=== PATIENT | male | born 1955 | race Caucasian/White ===

== ENCOUNTER 2016-09-03 11:18 | Emergency (ER) | payer MEDICARE ==
[~2016-09-03] VITALS: Ht 170.2 cm; Wt 77.3 kg
[~2016-09-03 11:18] MED LIST: ISOS30TA3 PO; METO25 PO; PROT40TA PO
[2016-09-03 11:21] VITALS: BP 101/59; PULSE 76; RESP 24; TEMP 97.8; O2SAT 98
[2016-09-03 11:24] VITALS: BP 101/59; PULSE 74; RESP 24; O2SAT 97
[2016-09-03 11:29] VITALS: O2SAT 99
[2016-09-03] MEDS ORDERED: SODIUM CHLORIDE 0.9% FLUSH 10 ML FLUSH IVF PRN (11:30)
--- NOTE | 2016-09-03 11:30 | PD ---
HPI Chief Complaint: Respiratory Symptoms Time Seen by Provider: 11:27 Travel History International Travel<30 days: No Contact w/Intl Traveler<30days: No Traveled to known affect area: No History of Present Illness HPI 61-year-old male with previous history of right sided pneumothorax, presents to the ER today for lightheadedness since this morning followed by dyspnea and shortness of breath. He denies any coughing, fevers, chest pains, or any other symptoms. He states that symptoms worsen with exertion. Modifying Factors: None Associated Signs & Symptoms: Shortness of breath, dyspnea Risk Factors: Previous pneumothorax history PFSH Past Medical History Cardiac Catheterization: Yes (3-4 YEARS AGO) Cardiovascular Problems: Yes Chest Pain: Yes Musculoskeletal: Yes (R HAND FINGER AMP) Respiratory: Yes Myocardial Infarction: Yes (X3) Social History Alcohol Use: No Tobacco Use: Yes Substance Use: No Allergies-Medications (Allergen,Severity, Reaction): Coded Allergies: Penicillin (Unverified Allergy, Unknown, 09/03/16) Sulfa (Unverified Allergy, Unknown, 09/03/16) Uncoded Allergies: UNK (Allergy, Severe, 01/29/14) Reported Meds & Prescriptions Reported Meds & Active Scripts Active Reported Zantac (Ranitidine HCl) 150 Mg Tab 150 Mg PO DAILY Nitroglycerin SL (Nitroglycerin) 0.4 Mg Subl 0.4 Mg SL DIRECTED PRN ONE TABLET UNDER THE TONGUE NEEDED FOR CHEST PAIN, MAY REPEAT EVERY FIVE MINUTES FOR A TOTAL OF 3 DOSES OR CALL 911 IF NO RELIEF [chantix patch] Aspirin 81 Mg Chew 81 Mg CHEW DAILY Review of Systems Except as stated in HPI: all other systems reviewed are Neg Physical Exam Narrative GENERAL: Well-developed elderly white male patient in mild respiratory distress. Awake and oriented 3. Appears fairly anxious. SKIN: Focused skin assessment warm/dry. HEAD: Atraumatic. Normocephalic. EYES: Pupils equal and round. No scleral icterus. No injection or drainage. ENT: No nasal bleeding or discharge. Mucous membranes pink and moist. NECK: Trachea midline. No JVD. CARDIOVASCULAR: Regular rate and rhythm. No murmur appreciated. Pulses are present and equal bilaterally. RESPIRATORY: No accessory muscle use. Clear to auscultation. Breath sounds equal bilaterally. GASTROINTESTINAL: Abdomen soft, non-tender, nondistended. Hepatic and splenic margins not palpable. MUSCULOSKELETAL: No obvious deformities. No clubbing. No cyanosis. No edema. NEUROLOGICAL: Awake and alert. No obvious cranial nerve deficits. Motor grossly within normal limits. Normal speech. PSYCHIATRIC: Appropriate mood and affect; insight and judgment normal. Data Data Last Documented VS Vital Signs Date Time Temp Pulse Resp B/P Pulse Ox O2 Delivery O2 Flow Rate FiO2 09/03/16 12:41 69 18 114/62 99 Nasal Cannula 3 09/03/16 11:21 97.8 Orders Complete Blood Count With Diff (09/03/16 11:27) Comprehensive Metabolic Panel (09/03/16 11:27) B-Type Natriuretic Peptide (09/03/16 11:27) D-Dimer (09/03/16 11:27) Act Partial Throm Time (Ptt) (09/03/16 11:27) Prothrombin Time / Inr (Pt) (09/03/16 11:27) Ckmb (Isoenzyme) Profile (09/03/16 11:27) Troponin I (09/03/16 11:27) Iv Access Insert/Monitor (09/03/16 11:27) Electrocardiogram (09/03/16 11:27) Ecg Monitoring (09/03/16 11:27) Oximetry (09/03/16 11:27) Oxygen Administration (09/03/16 11:27) Chest, Single Ap (09/03/16 11:27) Sodium Chloride 0.9% Flush (Ns Flush) (09/03/16 11:30) CKMB (09/03/16 11:31) CKMB% (09/03/16 11:31) Lorazepam Inj (Ativan Inj) (09/03/16 12:45) Labs Laboratory Tests Test 09/03/16 11:31 White Blood Count 6.5 TH/MM3 Red Blood Count 4.48 MIL/MM3 Hemoglobin 14.1 GM/DL Hematocrit 41.0 % Mean Corpuscular Volume 91.5 FL Mean Corpuscular Hemoglobin 31.4 PG Mean Corpuscular Hemoglobin 34.4 % Concent Red Cell Distribution Width 12.8 % Platelet Count 203 TH/MM3 Mean Platelet Volume 8.3 FL Neutrophils (%) (Auto) 65.5 % Lymphocytes (%) (Auto) 25.0 % Monocytes (%) (Auto) 7.5 % Eosinophils (%) (Auto) 1.4 % Basophils (%) (Auto) 0.6 % Neutrophils # (Auto) 4.2 TH/MM3 Lymphocytes # (Auto) 1.6 TH/MM3 Monocytes # (Auto) 0.5 TH/MM3 Eosinophils # (Auto) 0.1 TH/MM3 Basophils # (Auto) 0.0 TH/MM3 CBC Comment DIFF FINAL Differential Comment Prothrombin Time 10.8 SEC Prothromb Time International 1.0 RATIO Ratio Activated Partial 24.7 SEC Thromboplast Time D-Dimer Quantitative (PE/DVT) 0.31 MG/L FEU Sodium Level 139 MEQ/L Potassium Level 3.6 MEQ/L Chloride Level 106 MEQ/L Carbon Dioxide Level 21.3 MEQ/L Anion Gap 12 MEQ/L Blood Urea Nitrogen 15 MG/DL Creatinine 1.26 MG/DL Estimat Glomerular Filtration 58 ML/MIN Rate Random Glucose 106 MG/DL Calcium Level 8.7 MG/DL Total Bilirubin 0.5 MG/DL Aspartate Amino Transf 20 U/L (AST/SGOT) Alanine Aminotransferase 29 U/L (ALT/SGPT) Alkaline Phosphatase 58 U/L Total Creatine Kinase 224 U/L Creatine Kinase MB 2.0 NG/ML Troponin I LESS THAN 0.02 NG/ML B-Type Natriuretic Peptide 19 PG/ML Total Protein 7.1 GM/DL Albumin 3.7 GM/DL [facility] Medical Decision Making Medical Screen Exam Complete: Yes Emergency Medical Condition: Yes Medical Record Reviewed: Yes Interpretation(s) EKG shows NSR, no ST elevation or depression, and no arrhythmias. No significant T-wave inversions. Laboratory Tests Test 09/03/16 11:31 Red Blood Count 4.48 MIL/MM3 (4.50-5.90) Estimat Glomerular Filtration 58 ML/MIN (>89) Rate Troponin I LESS THAN 0.02 NG/ML (0.02-0.05) Last 24 hours Impressions Chest X-Ray 09/03/16 1127 Signed Impressions: Service Date/Time: Saturday, September 03, 2016 11:41 - CONCLUSION: No acute disease. Beau Sweeney MD Differential Diagnosis Lightheadedness, shortness of breath, dyspneapneumonia versus CHF exacerbation versus COPD/bronchitis versus anxiety attack versus pneumothorax Narrative Course Saturations are within normal limits. EKG did not show any signs of dysrhythmias. D-dimer is negative. Cardiac enzymes are unremarkable and BNP is unremarkable. Chest x-ray did not show any signs of acute pulmonary processes. And on further discussions with the patient, he states that he has been more stressed out than usual, states that his has medical issues, and the money has been tight, and he states he does not know what happened this morning, just was not feeling right. He was given Ativan in the ER and on reevaluation at 1:30 PM, he states he is feeling improved. His vital signs remained stable. He has no focal neurological deficits. He has talking normally, oriented, has no chest pains, and states that the feeling like he was short of breath is subsiding. I suspect he could be having an anxiety attack in this case. Patient has previous history of anxiety attacks although not recent. I have talked to him regarding findings and have offered to admit him as an observation but the patient states that he would feel more comfortable following up with his primary care physician. Patient states that he has had stress testing done about 3 to 4 years ago which were negative. At this point, my plan would be to release him with follow-up closely with primary care physician. Return for any worsening in shortness of breath or new symptoms as needed. The plan has discussed with him and he states understanding. Diagnosis Primary Impression: Shortness of breath Disposition: 01 DISCHARGE HOME Condition: Stable Mirza Santiago MD Sep 03, 2016 11:30
[2016-09-03] MEDS ORDERED: ASPI81CH CHEW (11:55)
[2016-09-03] MEDS ORDERED: ZANT150T2 PO (11:55)
[2016-09-03] MEDS ORDERED: NITR1SUB3 SL (11:55)
[2016-09-03] MEDS ORDERED: CHANTIX (11:55)
[2016-09-03 11:58] LABS: AUTOMATED NEUTROPHIL # 4.2 TH/MM3 (1.8-7.7); BASOPHIL % 0.6 % (0.0-2.0); EOSINOPHIL # 0.1 TH/MM3 (0-0.4); EOSINOPHIL % 1.4 % (0.0-4.0); HEMO FLAGS DIFF FINAL; LYMPHOCYTE # 1.6 TH/MM3 (1.0-4.8); MEAN CELL VOLUME 91.5 FL (80.0-100.0); MEAN CORPUSCULAR HEMOGLOBIN 31.4 PG (27.0-34.0); MEAN CORPUSCULAR HGB CONC 34.4 % (32.0-36.0); MONO % 7.5 % (0.0-8.0); NEUT % 65.5 % (16.0-70.0); PLATELET COUNT 203 TH/MM3 (150-450); RED BLOOD COUNT 4.48 MIL/MM3 (4.50-5.90); RED CELL DISTRIBUTION WIDTH 12.8 % (11.6-17.2); WHITE BLOOD COUNT 6.5 TH/MM3 (4.0-11.0)
[2016-09-03 11:59] VITALS: BP 107/57; PULSE 69; RESP 19; O2SAT 99
[2016-09-03 12:13] LABS: APTT (PATIENT) 24.7 SEC (24.3-30.1); PROTHROMBIN TIME - PATIENT 10.8 SEC (9.8-11.6)
--- NOTE | 2016-09-03 12:14 | RADRPT ---
EXAM DATE/TIME: 09/03/2016 11:41 [facility] COMPARISON: CHEST SINGLE AP, November 01, 2014, 16:40. INDICATIONS : Short of breath, chest pain MEDICAL HISTORY : Myocardial infarction. SURGICAL HISTORY : None. ENCOUNTER: Initial ACUITY: 1 day PAIN SCORE: 3/10 LOCATION: Bilateral chest FINDINGS: A single view of the chest demonstrates the lungs to be symmetrically aerated without evidence of mas s, infiltrate or effusion. The cardiomediastinal contours are unremarkable. Osseous structures are intact. CONCLUSION: No acute disease. Beau Sweeney MD on September 03, 2016 at 12:12 Board Certified Radiologist. This report was verified electronically.
[2016-09-03 12:24] LABS: ALKALINE PHOSPHATASE 58 U/L (45-117); ALT (GPT) 29 U/L (12-78); ANION GAP 12 MEQ/L (5-15); AST (GOT) 20 U/L (15-37); BICARBONATE 21.3 MEQ/L (21.0-32.0); BLOOD UREA NITROGEN 15 MG/DL (7-18); CHLORIDE 106 MEQ/L (98-107); CREATINE KINASE 224 U/L (39-308); GLOMERULAR FILTRATION RATE 58 ML/MIN (>89); POTASSIUM 3.6 MEQ/L (3.5-5.1); SODIUM (NA) 139 MEQ/L (136-145); TOTAL BILIRUBIN ADULT 0.5 MG/DL (0.2-1.0)
[2016-09-03 12:41] VITALS: BP 114/62; PULSE 69; RESP 18; O2SAT 99
[2016-09-03] MEDS ORDERED: LORazepam 2 MG/ML VIAL IV PUSH ONE (12:45)
[2016-09-03 14:05] VITALS: BP 109/65; PULSE 67; RESP 18; O2SAT 99
--- NOTE | 2016-09-03 23:57 | EKG ---
Date Performed: 09/03/2016 Time Performed: 11:22:41 PTAGE: 61 years EKG: Sinus rhythm NORMAL ECG Compared to prior tracing no significant change DOCTOR: Sadiq Trejo Interpretating Date/Time 09/03/2016 23:57:01
== END 2016-09-03 14:30 | disposition home or self-care (01) ==
LOC: NEPC 11:18
DX: R06.02 Shortness of breath (principal); I25.2 Old myocardial infarction; Z72.0 Tobacco use; Z86.79 Personal history of other diseases of the circulatory system; Z87.39 Personal history of other diseases of the musculoskeletal system and connective tissue; Z87.09 Personal history of other diseases of the respiratory system
CPT/HCPCS: 71010; 80053; 82550; 82552; 83880; 84484; 85025; 85379; 85610; 85730; 93005; 96374; 99285; J2060

== ENCOUNTER 2018-04-15 10:13 | Observation (INO) ==
--- NOTE | 2018-04-15 10:27 | ED ---
HPI General Chief Complaint: Chest Pain Stated Complaint: Seen here -chest pressure Time Seen by Provider: 04/15/18 10:23 Source: patient Mode of arrival: ambulatory Limitations: no limitations History of Present Illness HPI narrative: Patient is a 1 pack a day smoker, follows up with Dr. North is primary care. Patient comes in complaining of chest pressure substernal nonradiating feels like he has 50 gallon barrel sitting on his chest is what he ate the words he used to describe the sensation, currently ranks it as 3 out of 10. MD complaint: Reports chest pain STEMI Alert: No Duration: intermittent Onset: during rest Pain location: Reports substernal Severity: severe Quality: Reports heaviness Pain radiation: Reports none Relieving factors: nothing Exacerbating factors: nothing Treatments prior to arrival chest pain: Reports none Related Data Home Medications Medication Instructions Recorded Confirmed aspirin 325 mg PO DAILY 04/15/18 04/15/18 Allergies Allergy/AdvReac Type Severity Reaction Status Date / Time penicillin G Allergy Unknown Edema Verified 04/15/18 10:26 Sulfa (Sulfonamide Allergy Unknown Edema Verified 04/15/18 10:26 Antibiotics) Review of Systems ROS: all other systems reviewed are negative PMFSH History History Provided By: Patient Medical History Medical History Collapsed lung (Acute) Myocardial infarct (Acute) Traumatic amputation of multiple fingers (Acute) Surgical History Surgical History H/O chest tube placement (Acute) S/P wrist surgery (Acute) Social History Social History Substance History: Active Abuse Smoking Status: Current every day smoker Tobacco Type: Cigarettes How Often Do You Have a Drink Containing Alcohol: Monthly or less Recent Travel in [facility] within the Last 8 Weeks: No Recent Out of Country Travel within the Last 8 Weeks: No Exam Narrative Exam Narrative: GENERAL: Well-nourished, well-developed patient in no apparent distress. SKIN: Warm and dry. HEAD: Atraumatic. Normocephalic. EYES: Pupils equal and round. No scleral icterus. No injection or drainage. ENT: No nasal bleeding or discharge. Mucous membranes pink and moist. NECK: Trachea midline. No JVD. CARDIOVASCULAR: Regular rate and rhythm. no rubs or gallops RESPIRATORY: No accessory muscle use. Clear to auscultation. Breath sounds equal bilaterally. GASTROINTESTINAL: Abdomen soft, non-tender, nondistended. No rebound or guarding MUSCULOSKELETAL: Extremities without clubbing, cyanosis, or edema. No obvious deformities. NEUROLOGICAL: Awake and alert. No obvious cranial nerve deficits. Motor grossly within normal limits. Five out of 5 muscle strength in the arms and legs. Normal speech. PSYCHIATRIC: Appropriate mood and affect; insight and judgment normal. Course Initial Documented Vital Signs Temperature 97.7 F 04/15/18 10:26 Pulse Rate 68 04/15/18 10:26 Respiratory Rate 16 04/15/18 10:26 Blood Pressure 142/76 H 04/15/18 10:26 Pulse Oximetry 98 04/15/18 10:26 Last Documented Vital Signs Temperature 97.7 F 04/15/18 10:26 Pulse Rate 65 04/15/18 12:11 Respiratory Rate 16 04/15/18 12:11 Blood Pressure 122/68 04/15/18 12:11 Pulse Oximetry 97 04/15/18 12:11 Medical Decision Making MDM Narrative Medical decision making narrative: CBC shows no evidence of any leukocytosis anemia abnormal platelet count or left shift Coagulation profile is within normal limits Normal kidney liver and pancreatic functions Negative first set of cardiac enzymes Elect lites are within normal limits. CT chest read by radiologist as no pulmonary embolus identified, also no evidence of any pericardial effusion noted. Also pulmonary parenchyma is clear no suspicious mass lesions identified. Patient will be admitted for chest pain rule out observation Medical Screen Exam Complete: Yes Emergency Medical Condition: Yes Medical Records Medical records reviewed: Yes I reviewed the patient's medical records. Lab Data Result diagrams: 04/15/18 10:45 04/15/18 10:45 Lab Results 04/15/18 04/15/18 04/15/18 Range/Units 10:45 10:45 10:45 CBC w Diff Auto diff final WBC 9.1 (4.0-11.0) th/mm3 RBC 5.06 (4.50-5.90) mil/mm3 Hgb 15.8 (13.0-17.0) gm/dL Hct 47.8 (39.0-51.0) % MCV 94.6 (80.0-100.0) fL MCH 31.1 (27.0-34.0) pg MCHC 32.9 (32.0-36.0) % RDW 12.4 (11.6-17.2) % Plt Count 217 (150-450) th/mm3 MPV 7.8 (7.0-11.0) fL Neut % (Auto) 65.2 (16.0-70.0) % Lymph % (Auto) 23.4 (9.0-44.0) % Butts % (Auto) 9.2 H (0.0-8.0) % Eos % (Auto) 1.6 (0.0-4.0) % Baso % (Auto) 0.6 (0.0-2.0) % Neut # (Auto) 6.0 (1.8-7.7) th/mm3 Lymph # (Auto) 2.1 (1.0-4.8) th/mm3 Butts # (Auto) 0.8 (0.0-0.9) th/mm3 Eos # (Auto) 0.1 (0.0-0.4) th/mm3 Baso # (Auto) 0.1 (0.0-0.2) th/mm3 WBC Differential . Differential Comment . PT 10.1 (9.8-11.6) sec INR 1.0 Ratio APTT 25.2 (23.4-31.7) sec Sodium 142 (136-145) meq/L Potassium 3.9 (3.5-5.1) meq/L Chloride 105 (98-107) meq/L Carbon Dioxide 30.4 (21.0-32.0) meq/L Anion Gap 7 (5-15) meq/L BUN 24 H (7-18) mg/dL Creatinine 1.20 (0.60-1.30) mg/dL Estimated GFR 62 L (>89) mL/min Random Glucose 73 L (74-106) mg/dL Calcium 8.1 L (8.5-10.1) mg/dL Total Bilirubin 0.3 (0.2-1.0) mg/dL AST 12 L (15-37) U/L ALT 34 (12-78) U/L Alkaline Phosphatase 61 (45-117) U/L Total Creatine Kinase 48 (39-308) U/L Troponin I Less than 0.02 L (0.02-0.05) ng/mL B-Natriuretic Peptide (0-100) pg/mL Total Protein 7.0 (6.4-8.2) g/dL Albumin 3.4 (3.4-5.0) g/dL Lipase 304 (73-393) U/L 04/15/18 Range/Units 10:45 CBC w Diff WBC (4.0-11.0) th/mm3 RBC (4.50-5.90) mil/mm3 Hgb (13.0-17.0) gm/dL Hct (39.0-51.0) % MCV (80.0-100.0) fL MCH (27.0-34.0) pg MCHC (32.0-36.0) % RDW (11.6-17.2) % Plt Count (150-450) th/mm3 MPV (7.0-11.0) fL Neut % (Auto) (16.0-70.0) % Lymph % (Auto) (9.0-44.0) % Butts % (Auto) (0.0-8.0) % Eos % (Auto) (0.0-4.0) % Baso % (Auto) (0.0-2.0) % Neut # (Auto) (1.8-7.7) th/mm3 Lymph # (Auto) (1.0-4.8) th/mm3 Butts # (Auto) (0.0-0.9) th/mm3 Eos # (Auto) (0.0-0.4) th/mm3 Baso # (Auto) (0.0-0.2) th/mm3 WBC Differential Differential Comment PT (9.8-11.6) sec INR Ratio APTT (23.4-31.7) sec Sodium (136-145) meq/L Potassium (3.5-5.1) meq/L Chloride (98-107) meq/L Carbon Dioxide (21.0-32.0) meq/L Anion Gap (5-15) meq/L BUN (7-18) mg/dL Creatinine (0.60-1.30) mg/dL Estimated GFR (>89) mL/min Random Glucose (74-106) mg/dL Calcium (8.5-10.1) mg/dL Total Bilirubin (0.2-1.0) mg/dL AST (15-37) U/L ALT (12-78) U/L Alkaline Phosphatase (45-117) U/L Total Creatine Kinase (39-308) U/L Troponin I (0.02-0.05) ng/mL B-Natriuretic Peptide 6 (0-100) pg/mL Total Protein (6.4-8.2) g/dL Albumin (3.4-5.0) g/dL Lipase (73-393) U/L Imaging Data Radiologist's impression: Chest CTA 04/15/18 10:25 CONCLUSION: 1. No pulmonary embolus identified. Chest X-Ray 04/15/18 10:25 CONCLUSION: Negative examination. ECG Data EKG Prior to Arrival: No Attestation: I personally reviewed and interpreted this ECG as follows: Prior ECG tracings: not available for review Interpretation: Sinus bradycardia, 59 bpm, normal intervals, no evidence of any ST elevation [place] pattern noted. Discharge Plan Discharge Disposition Patient Disposition: 30 Still Patient Discharge Condition Condition: Stable Discharge Details Diagnosis: Chest pain, rule out acute myocardial infarction Physicians Team ED Provider: Chencho Chambers Primary Care Provider: Giuseppe North Rxs /Orders / Referrals /Forms Prescriptions: No Action aspirin 325 mg Tablet 325 mg PO DAILY RF: 0 Discharge Instructions Patient Printed Instructions: Chest Pain (ED) Status ED Status: With Doctor
--- NOTE | 2018-04-15 10:52 | XR ---
EXAM DATE: 04/15/2018 10:37 AM EST AGE/SEX: 62 years / Male INDICATIONS: Chest pain, short of breath. CLINICAL DATA: This is the patient's initial encounter. Patient reports that signs and symptoms have been present for 3 days and indicates a pain score of 5/10. MEDICAL/SURGICAL HISTORY: Myocardial infarction. smoker . cardiac cath COMPARISON: [facility] [place]ST [place], 09/03/2016. . FINDINGS: A single AP view of the chest demonstrates the lungs to be symmetrically aerated without evidence of mass, infiltrate or effusion. The cardiomediastinal contours are unremarkable. Osseous structures a re intact. CONCLUSION: Negative examination. Electronically signed by: Giuseppe Dominguez MD 04/15/2018 10:50 AM EST
[2018-04-15 10:58] LABS: Baso # (Auto) 0.1 th/mm3 (0.0-0.2); Baso % (Auto) 0.6 % (0.0-2.0); Eos # (Auto) 0.1 th/mm3 (0.0-0.4); Eos % (Auto) 1.6 % (0.0-4.0); Hematocrit 47.8 % (39.0-51.0); Hemoglobin 15.8 gm/dL (13.0-17.0); Lymph # (Auto) 2.1 th/mm3 (1.0-4.8); Lymph % (Auto) 23.4 % (9.0-44.0); Mean Corpuscular HGB Conc 32.9 % (32.0-36.0); Mean Corpuscular Hemoglobin 31.1 pg (27.0-34.0); Mean Corpuscular Volume 94.6 fL (80.0-100.0); Mean Platelet Volume 7.8 fL (7.0-11.0); Mono # (Auto) 0.8 th/mm3 (0.0-0.9); Mono % (Auto) 9.2 % (0.0-8.0); Neut % (Auto) 65.2 % (16.0-70.0); Platelet Count 217 th/mm3 (150-450); Red Blood Count 5.06 mil/mm3 (4.50-5.90); Red Cell Distribution Width 12.4 % (11.6-17.2); White Blood Count 9.1 th/mm3 (4.0-11.0)
[2018-04-15 11:10] LABS: Chloride 105 meq/L (98-107); Potassium 3.9 meq/L (3.5-5.1); Sodium 142 meq/L (136-145)
[2018-04-15 11:14] LABS: Calcium 8.1 mg/dL (8.5-10.1)
[2018-04-15 11:15] LABS: Activated Partial Thrombo Time 25.2 sec (23.4-31.7); Albumin 3.4 g/dL (3.4-5.0); Anion Gap 7 meq/L (5-15); Blood Urea Nitrogen 24 mg/dL (7-18); Carbon Dioxide 30.4 meq/L (21.0-32.0); Glucose,Random 73 mg/dL (74-106); Lipase 304 U/L (73-393); Prothrombin Time 10.1 sec (9.8-11.6)
[2018-04-15 11:18] LABS: Alanine Aminotransferase 34 U/L (12-78); Aspartate Aminotransferase 12 U/L (15-37); Glomerular Filtration Rate 62 mL/min (>89)
[2018-04-15 11:20] LABS: Alkaline Phosphatase 61 U/L (45-117)
[2018-04-15 11:34] LABS: Creatine Kinase 48 U/L (39-308)
--- NOTE | 2018-04-15 11:37 | CT ---
EXAM DATE: 04/15/2018 11:33 AM EST AGE/SEX: 62 years / Male INDICATIONS: Chest pain. Short of breath. CLINICAL DATA: This is the patient's initial encounter. Patient reports that signs and symptoms have been present for 3 weeks and indicates a pain score of 6/10. MEDICAL/SURGICAL HISTORY: Myocardial infarction. Collapsed lung. None. RADIATION DOSE: 12.95 CTDI (mGy) COMPARISON: . TECHNIQUE: Volumetric scanning was performed using a multi-row detector CT scanner during bolus infu skye of 75 ml Omnipaque 350 (iohexol) nonionic water-soluble contrast as a single exam dose. The anthony a was post processed with a variety of visualization algorithms including full volume maximum intensi ty projection and sliding thin slab reformation. Using automated exposure control and adjustment of the mA and/or kV according to patient size, radiation dose was kept as low as reasonably achievable t o obtain optimal diagnostic quality images. DICOM format image data is available electronically for review and comparison. FINDINGS: The examination is of good diagnostic quality. No pulmonary embolus is identified. There is no significant hilar or mediastinal adenopathy. The heart is normal in size. No pericardial effusion is present. No axillary adenopathy is seen. The pulmonary parenchyma is clear. No suspicious mass lesions are identified. There are degenerative changes within the thoracic spine. CONCLUSION: 1. No pulmonary embolus identified. Electronically signed by: Josh Draper MD 04/15/2018 11:36 AM EST
[2018-04-15] MEDS ORDERED: Morphine Inj 4 MG/ML Vial IV.PUSH ONE (12:57)
[2018-04-15] MEDS ORDERED: Diatrizoate Meglum/Diatrizoate Sod Liq 9 ML UDC PO ONE (13:47)
--- NOTE | 2018-04-15 13:57 | P.HP ---
History of Present Illness Primary Care Physician: Giuseppe North DO Chief Complaint: Chest pain/abdominal pain History of Present Illness: This is 62-year-old male patient with a known medical history of CAD with prior [place] who presented to the ED with complaints of chest pain along with abdominal pain. Patient states that he has been diagnosed with bacterial bronchitis three weeks ago and at that time he was prescribed azithromycin and steroids, once finishing his course he did feel improvement for a few days and then continued cough as well as developed chest pain. Patient states that the chest pain is in his mid-epigastric area and it radiates around to his back. He states that the pain feels tight and heavy in nature, in consistent, without any relief, worsens with movement and deep breathing, states that the pain is rated an 8/10 at its worse, does admit to nausea, denies any associated shortness of breath, diaphoresis and vomiting. Patient does state that he has had a productive cough that has been green tinged but yesterday he noticed black sputum as well as a bowel movement this morning that was black in color. He states that he has used his 's prilosec at home for concern for a GI ulcer. He denies ever having a colonoscopy nor an EGD. Patient's family history significant for colon cancer on his mother's side. He denies any significant weight loss. Denies any fever, chills, headache, diarrhea or dysuria. - Diagnosis (1) Abdominal pain (2) Chest pain, rule out acute myocardial infarction Review of Systems All other systems reviewed negative except as stated in HPI PMFSH - History History Provided By: Patient - Medical History Medical History: Medical History (Last Reviewed 04/15/18 @ 14:47 by Jessie Heck) Collapsed lung Myocardial infarct Traumatic amputation of multiple fingers - Surgical History Surgical History: Surgical History (Last Reviewed 04/15/18 @ 14:47 by Jessie Heck) H/O chest tube placement S/P wrist surgery - Family History Family History: Family History (Last Updated 04/15/18 @ 14:57 by Jessie Heck) Mother Colon cancer - Social History I have reviewed the patient's Social History: Yes - Tobacco History Tobacco Use In Past 30 Days: Yes Smoking Status: Current every day smoker Tobacco Type: Cigarettes - Alcohol History How Often Do You Have a Drink Containing Alcohol: Monthly or less - Substance Use History Substance History: Active Abuse - Substance Use Type Marijuana Status: Active Route Used: Inhalation Frequency: occ Reason for Use: Get High - Travel History Recent Travel in the [place] Within the Last 8 Weeks: No Recent Travel Out of the Country Within the Last 8 Weeks: No - Immunization History Tetanus Immunization: >5 Years Medications and Allergies Active Medications: Active Medications Diatrizoate Meglum/Diatrizoate Sod ( Gastromaira Liq) 18 ml PO ONCE ONE; Protocol Stop: 04/15/18 13:48 Sodium Chloride (Ns Inj) 1,000 mls @ 100 mls/hr IV.CONT .Q10H FRANKY Sodium Chloride (Ns Flush) 2 ml IV.FLUSH UNSCH PRN PRN Reason: FLUSH AFTER USING IV ACCESS Sodium Chloride (Ns Flush) 2 ml IV.FLUSH BID FRANKY Sodium Chloride (Ns Flush) 2 ml IV.FLUSH PRN PRN PRN Reason: FLUSH AFTER USING IV ACCESS Allergies Allergy/AdvReac Type Severity Reaction Status Date / Time penicillin G Allergy Unknown Edema Verified 04/15/18 10:26 Sulfa (Sulfonamide Allergy Unknown Edema Verified 04/15/18 10:26 Antibiotics) Home Medications Medication Instructions Recorded Confirmed Type aspirin 325 mg PO DAILY 04/15/18 04/15/18 History Exam Vital signs: Vital Signs 04/15/18 10:26 04/15/18 10:34 04/15/18 12:11 Temperature 97.7 F Pulse Rate 68 70 65 Respiratory Rate 16 16 16 Blood Pressure 142/76 H 138/75 122/68 Pulse Oximetry 98 98 97 Intake & Output 04/14/18 04/15/18 04/15/18 18:59 06:59 18:59 Weight 73 kg - Constitutional no acute distress - Routine HEENT Exam Head: Present: normocephalic Eye: Present: EOMI, PERRL - Routine Neck Exam Present: supple - Routine Cardiovascular Exam Present: RRR, S1, S2 - Routine Abdominal Exam Present: soft - Routine Skin Exam Present: intact - Routine Neurological Exam Present: alert, oriented X3 Results - Labs CBC & Chem 7: 04/15/18 10:45 04/15/18 10:45 Labs: Laboratory Results - last 24 hr 04/15/18 04/15/18 04/15/18 10:45 10:45 10:45 CBC w Diff Auto diff final WBC 9.1 RBC 5.06 Hgb 15.8 Hct 47.8 MCV 94.6 MCH 31.1 MCHC 32.9 RDW 12.4 Plt Count 217 MPV 7.8 Neut % (Auto) 65.2 Lymph % (Auto) 23.4 [place] % (Auto) 9.2 H Eos % (Auto) 1.6 Baso % (Auto) 0.6 Neut # (Auto) 6.0 Lymph # (Auto) 2.1 [place] # (Auto) 0.8 Eos # (Auto) 0.1 Baso # (Auto) 0.1 WBC Differential . Differential Comment . PT 10.1 INR 1.0 APTT 25.2 Sodium 142 Potassium 3.9 Chloride 105 Carbon Dioxide 30.4 Anion Gap 7 BUN 24 H Creatinine 1.20 Estimated GFR 62 L Random Glucose 73 L Calcium 8.1 L Total Bilirubin 0.3 AST 12 L ALT 34 Alkaline Phosphatase 61 Total Creatine Kinase 48 Troponin I Less than 0.02 L B-Natriuretic Peptide Total Protein 7.0 Albumin 3.4 Lipase 304 04/15/18 10:45 CBC w Diff WBC RBC Hgb Hct MCV MCH MCHC RDW Plt Count MPV Neut % (Auto) Lymph % (Auto) [place] % (Auto) Eos % (Auto) Baso % (Auto) Neut # (Auto) Lymph # (Auto) [place] # (Auto) Eos # (Auto) Baso # (Auto) WBC Differential Differential Comment PT INR APTT Sodium Potassium Chloride Carbon Dioxide Anion Gap BUN Creatinine Estimated GFR Random Glucose Calcium Total Bilirubin AST ALT Alkaline Phosphatase Total Creatine Kinase Troponin I B-Natriuretic Peptide 6 Total Protein Albumin Lipase - Imaging Impressions Chest CTA 04/15/18 10:25 CONCLUSION: 1. No pulmonary embolus identified. Chest X-Ray 04/15/18 10:25 CONCLUSION: Negative examination. Caprini VTE Risk Assessment Caprini VTE Risk Assessment: Moderate/High Risk (score >= 2) Caprini Risk Assessment Model: Point Value = 1 Point Value = 2 Point Value = 3 Point Value = 5 Age 41-60 Minor surgery BMI > 25 kg/m2 Swollen legs Varicose veins or History of unexplained or recurrent spontaneous Oral contraceptives or hormone replacement Sepsis (< 1 month) Serious lung disease, including pneumonia (< 1 month) Abnormal pulmonary function Acute myocardial infarction Congestive heart failure (< 1 month) History of inflammatory bowel disease Medical patient at bed rest Age 61-74 Arthroscopic surgery Major open surgery (> 45 min) Laparoscopic surgery (> 45 min) Malignancy Confined to bed (> 72 hours) Immobilizing plaster cast Central venous access Age >= 75 History of VTE Family history of VTE Factor V Leiden Prothrombin [id number] Lupus anticoagulant Anticardiolipin antibodies Elevated serum homocysteine Heparin-induced thrombocytopenia Other congenital or acquired thrombophilia Stroke (< 1 month) Elective arthroplasty Hip, pelvis, or leg fracture Acute spinal cord injury (< 1 month) Prophylaxis Regimen: Total Risk Factor Score Risk Level Prophylaxis Regimen 0-1 Low Early ambulation 2 Moderate Order ONE of the following: *Sequential Compression Device (SCD) *Heparin 5000 units SQ BID 3-4 Higher Order ONE of the following medications: *Heparin 5000 units SQ TID *Enoxaparin/Lovenox 40 mg SQ daily (WT < 150 kg, CrCl > 30 mL/min) *Enoxaparin/Lovenox 30 mg SQ daily (WT < 150 kg, CrCl > 10-29 mL/min) *Enoxaparin/Lovenox 30 mg SQ BID (WT < 150 kg, CrCl > 30 mL/min) AND/OR *Sequential Compression Device (SCD) 5 or more Highest Order ONE of the following medications: *Heparin 5000 units SQ TID (Preferred with Epidurals) *Enoxaparin/Lovenox 40 mg SQ daily (WT < 150 kg, CrCl > 30 mL/min) *Enoxaparin/Lovenox 30 mg SQ daily (WT < 150 kg, CrCl > 10-29 mL/min) *Enoxaparin/Lovenox 30 mg SQ BID (WT < 150 kg, CrCl > 30 mL/min) AND *Sequential Compression Device (SCD) Assessment and Plan - Assessment (1) Abdominal pain Code(s): R10.9 - Unspecified abdominal pain Status: Acute (2) Chest pain, rule out acute myocardial infarction Code(s): R07.9 - Chest pain, unspecified Status: Acute - Plan This is a 62-year-old male patient who presented to the ED with: Chest pain, atypical History of CAD with [place] -Patient complaint of 3-week history of mid-epigastric/chest pain. -Was given Morphine IV in ED which has somewhat improved the pain but still present. -Serial EKGs and serial troponins have been ordered for ruling out ACS purposes. -Initial troponin flat, continue to monitor trend. -EKG reviewed showing controlled heart rate, no ST changes noted. Continue to monitor on cardiac telemetry. -Hold aspirin for now for possible GI bleed/ulcer. -CBC and BMP reviewed, essentially unremarkable. BNP normal. -CXR reviewed with no acute findings. -Chest CTA reviewed without evidence of PE. -If patient rules out ACS with serial EKGs and serial troponins, he will likely undergo a cardiac stress test in am to further rule out ischemia. -Patient is stable at this time and agreeable to the plan. Abdominal/epigastric pain -Reports of blood in stool as well as some bloody sputum. Also admits to using his 's prilosec for concern for possible ulcer. -Was given GI cocktail. Continue Protonix scheduled. -Allow for clear liquid diet. Abdominal/pelvis CT ordered and pending. -Ensure hydration, continue IVF. -Check occult stool. Check sputum culture. -CBC reviewed and H&H stable. Will continue to monitor for any active bleeding. -If occult stool positive, patient will need gastroenterology consulted for evaluation. -Does admit to a family history of colon cancer on his mother's side, denies previous colonoscopy. -Supportive care. Tobacco abuse: Nicotine patch ordered. Patient expresses desire to quit. Encouraged cessation. DVT Prophylaxis: SCDs. Further hospitalization and treatment plan will depend on cardiac and GI work up.
[2018-04-15] MEDS: Sod Chloride 0.9% Inj 1,000 ML IV.CONT SCH ×2 (14:22→23:46)
[2018-04-15] MEDS ORDERED: Aluminum/Magnesium/Simethacone Susp 30 ML UDC PO ONE (14:30)
[2018-04-15 15:54] LABS: Creatine Kinase 47 U/L (39-308)
[2018-04-15] MEDS ORDERED: Morphine Sulfate Inj 2 MG/ML Vial IV.PUSH PRN (16:41)
--- NOTE | 2018-04-15 16:49 | ECG ---
Date Performed: 04/15/2018 Time Performed: 10:19:02 PTAGE: 62 years EKG: SINUS BRADYCARDIA Since previous tracing, no significant change noted BORDERLINE ECG PREVIOUS TRACING : 09/03/2016 11.22 DOCTOR: Efraín Spivey Interpretating Date/Time 04/15/2018 16:47:53
--- NOTE | 2018-04-15 16:54 | CT ---
EXAM DATE: 04/15/2018 4:39 PM EST AGE/SEX: 62 years / Male INDICATIONS: Right upper quadrant pain. CLINICAL DATA: This is the patient's initial encounter. Patient reports that signs and symptoms have been present for 1 day and indicates a pain score of 6/10. MEDICAL/SURGICAL HISTORY: None. None. RADIATION DOSE: 10.63 CTDI (mGy) COMPARISON: . TECHNIQUE: Multiple contiguous axial images were obtained through the abdomen. Images were obtained using multiple row detector helical technique. Using automated exposure control and adjustment of the mA and/or kV according to patient size, radiation dose was kept as low as reasonably achievable to o btain optimal diagnostic quality images. DICOM format image data is available electronically for rev iew and comparison. FINDINGS: Lower Lungs: Scattered fibrotic scarring is noted within the posterior lung bases bilaterally. There is a 5 mm noncalcified nodule within the right lower lobe adjacent to the major fissure which is inde terminate. Liver: The liver has a homogeneous density without space-occupying lesion. There is no dilation of th e biliary tree. There is a tiny calcified gallstone within the gallbladder lumen. Spleen: Homogeneous density without enlargement. Pancreas: Unremarkable without mass or calcification. Kidneys: Normal in size and shape. No evidence of mass or hydronephrosis. There is a 10 mm probable cyst within the anterior aspect of the right kidney. There is a tiny 3 mm calcified nonobstructing ri ght renal calculus. Adrenal Glands: Unremarkable. Aorta: The aorta and proximal iliac vessels are grossly unremarkable without aneurysmal dilation. Bowel/Mesentery: The bowel loops are grossly unremarkable. The cecum and sigmoid colon have a normal configuration. Abdominal Wall: Intact. Retroperitoneum: No evidence of adenopathy in the retrocrural, para-aortic, or deep pelvic regions. Bladder: Contours are smooth. Reproductive Organs: No abnormal masses or calcifications seen. Inguinal: The inguinal region is unremarkable without evidence of adenopathy. Bony Structures: Mild degenerative changes and scoliosis of the thoracolumbar spine are noted. CONCLUSION: 1. Cholelithiasis. 2. 5 mm noncalcified nodule within the right lower lobe adjacent to the major fissure which is indet erminate. 3. Tiny 3 mm calcified nonobstructing right renal calculus. 4. 10 mm probable cyst within the anterior aspect right kidney. 5. Mild degenerative changes and scoliosis of the thoracolumbar spine. 6. Scattered fibrotic scarring within the posterior lung bases. Electronically signed by: Beau Sweeney MD 04/15/2018 4:53 PM EST
[2018-04-15] MEDS: Pantoprazole Inj 40 MG Vial IV.PUSH SCH (18:21)
[2018-04-15] MEDS: Morphine Inj 4 MG/ML Vial IV.PUSH PRN ×2 (18:22→23:45)
[2018-04-15 19:02] LABS: Creatine Kinase 46 U/L (39-308)
[2018-04-15] MEDS: Acetaminophen 325 MG Tablet PO PRN (20:17)
[2018-04-15] MEDS: Sucralfate Liq 1 GM/10 ML UDC PO SCH (20:18)
[2018-04-16] MEDS: Pantoprazole Inj 40 MG Vial IV.PUSH SCH (05:30)
[2018-04-16 06:49] LABS: Baso % (Auto) 0.6 % (0.0-2.0); Eos # (Auto) 0.2 th/mm3 (0.0-0.4); Eos % (Auto) 2.7 % (0.0-4.0); Hemoglobin 14.2 gm/dL (13.0-17.0); Lymph # (Auto) 1.8 th/mm3 (1.0-4.8); Lymph % (Auto) 22.3 % (9.0-44.0); Mean Corpuscular HGB Conc 34.6 % (32.0-36.0); Mean Corpuscular Hemoglobin 32.3 pg (27.0-34.0); Mean Corpuscular Volume 93.3 fL (80.0-100.0); Mean Platelet Volume 7.7 fL (7.0-11.0); Mono # (Auto) 0.6 th/mm3 (0.0-0.9); Mono % (Auto) 7.6 % (0.0-8.0); Neut # (Auto) 5.6 th/mm3 (1.8-7.7); Neut % (Auto) 66.8 % (16.0-70.0); Platelet Count 167 th/mm3 (150-450); Red Cell Distribution Width 11.8 % (11.6-17.2); White Blood Count 8.2 th/mm3 (4.0-11.0)
[2018-04-16 07:05] LABS: Calcium 7.6 mg/dL (8.5-10.1)
--- NOTE | 2018-04-16 08:06 | P.PNIM ---
Subjective Interval history: Follow up chest pain and abdominal pain. Patient seen and examined, lying in bed comfortably, states he feels much improved this morning after carafate. He states that he still does feel some chest pressure but it has lightened up. Denies any fever, chills, headache, nausea, vomiting, diarrhea or dysuria. Spoke with GI who wants to see patient in the office today if DCd for possible outpatient EGD. Patient has been updated. Physical Exam Vital signs: Vital Signs 04/15/18 10:26 04/15/18 10:34 04/15/18 12:11 Temperature 97.7 F Pulse Rate 68 70 65 Respiratory Rate 16 16 16 Blood Pressure 142/76 H 138/75 122/68 Pulse Oximetry 98 98 97 04/15/18 13:55 04/15/18 15:21 04/15/18 16:00 Temperature 99.1 F Pulse Rate 70 64 58 L Respiratory Rate 16 20 Blood Pressure 138/75 118/75 Pulse Oximetry 96 96 04/15/18 19:45 04/15/18 20:00 04/15/18 21:00 Temperature 97.2 F L Pulse Rate 74 Respiratory Rate 18 18 Blood Pressure 108/57 L Pulse Oximetry 94 L 95 04/16/18 00:00 04/16/18 00:11 04/16/18 04:00 Temperature 97.4 F L 96 F L Pulse Rate 58 L 55 L Respiratory Rate 20 18 18 Blood Pressure 94/54 L 95/58 L Pulse Oximetry 96 96 Intake & Output 04/15/18 04/16/18 04/16/18 18:59 06:59 18:59 Intake Total 352 / 352 1000 / 1000 Balance 352 / 352 1000 / 1000 Weight 72.7 kg 73.3 kg Intake: IV 352 / 352 1000 / 1000 NS Inj 1,000 ML @ 100 mls/hr IV 352 / 352 1000 / 1000 .CONT .Q10H FRANKY Rx#:[id number] Oral 0 / 0 Other: # Voids 2 5 Date of Last Bowel Movement 04/15/18 04/15/18 Weight On Admission 72.7 kg Narrative: GENERAL: Well-developed, well-nourished patient in [facility]. SKIN: Warm and dry. No rash. HEAD: Normocephalic. Atraumatic. EYES: Pupils equal and round. No scleral icterus. No injection or drainage. ENT: No nasal bleeding or discharge. Mucous membranes pink and moist. NECK: Supple. Trachea midline. CARDIOVASCULAR: Regular rate and rhythm. S1, S2 noted. No murmur appreciated. No chest pain to palpation. RESPIRATORY: No accessory muscle use. Clear to auscultation. Breath sounds equal bilaterally. GASTROINTESTINAL: Abdomen soft, non-tender, nondistended. Normoactive bowel sounds x4. MUSCULOSKELETAL: No obvious deformities. Extremities without clubbing, cyanosis , or edema. NEUROLOGICAL: Awake and alert. No obvious cranial nerve deficits. Motor grossly within normal limits. 5/5 muscle strength in bilateral upper and lower extremities. Normal speech. PSYCHIATRIC: Appropriate mood and affect; insight and judgment normal. Results - Labs CBC & Chem 7: 04/16/18 06:10 04/16/18 06:10 Laboratory Results - last 24 hr 04/15/18 04/15/18 04/15/18 10:45 10:45 10:45 CBC w Diff Auto diff final WBC 9.1 RBC 5.06 Hgb 15.8 Hct 47.8 MCV 94.6 MCH 31.1 MCHC 32.9 RDW 12.4 Plt Count 217 MPV 7.8 Neut % (Auto) 65.2 Lymph % (Auto) 23.4 [place] % (Auto) 9.2 H Eos % (Auto) 1.6 Baso % (Auto) 0.6 Neut # (Auto) 6.0 Lymph # (Auto) 2.1 [place] # (Auto) 0.8 Eos # (Auto) 0.1 Baso # (Auto) 0.1 WBC Differential . Differential Comment . PT 10.1 INR 1.0 APTT 25.2 Sodium 142 Potassium 3.9 Chloride 105 Carbon Dioxide 30.4 Anion Gap 7 BUN 24 H Creatinine 1.20 Estimated GFR 62 L Random Glucose 73 L Calcium 8.1 L Total Bilirubin 0.3 AST 12 L ALT 34 Alkaline Phosphatase 61 Total Creatine Kinase 48 Troponin I Less than 0.02 L B-Natriuretic Peptide Total Protein 7.0 Albumin 3.4 Lipase 304 04/15/18 04/15/18 04/15/18 10:45 15:10 17:45 CBC w Diff WBC RBC Hgb Hct MCV MCH MCHC RDW Plt Count MPV Neut % (Auto) Lymph % (Auto) [place] % (Auto) Eos % (Auto) Baso % (Auto) Neut # (Auto) Lymph # (Auto) [place] # (Auto) Eos # (Auto) Baso # (Auto) WBC Differential Differential Comment PT INR APTT Sodium Potassium Chloride Carbon Dioxide Anion Gap BUN Creatinine Estimated GFR Random Glucose Calcium Total Bilirubin AST ALT Alkaline Phosphatase Total Creatine Kinase 47 46 Troponin I Less than 0.02 L Less than 0.02 L B-Natriuretic Peptide 6 Total Protein Albumin Lipase 04/16/18 04/16/18 06:10 06:10 CBC w Diff Auto diff final WBC 8.2 RBC 4.40 L Hgb 14.2 Hct 41.0 MCV 93.3 MCH 32.3 MCHC 34.6 RDW 11.8 Plt Count 167 MPV 7.7 Neut % (Auto) 66.8 Lymph % (Auto) 22.3 [place] % (Auto) 7.6 Eos % (Auto) 2.7 Baso % (Auto) 0.6 Neut # (Auto) 5.6 Lymph # (Auto) 1.8 [place] # (Auto) 0.6 Eos # (Auto) 0.2 Baso # (Auto) 0.0 WBC Differential . Differential Comment . PT INR APTT Sodium 138 Potassium 4.0 Chloride 105 Carbon Dioxide 28.0 Anion Gap 5 BUN 16 Creatinine 0.94 Estimated GFR 82 L Random Glucose 92 Calcium 7.6 L Total Bilirubin AST ALT Alkaline Phosphatase Total Creatine Kinase Troponin I B-Natriuretic Peptide Total Protein Albumin Lipase - Imaging Impressions Abdomen/Pelvis CT 04/15/18 00:00 CONCLUSION: 1. Cholelithiasis. 2. 5 mm noncalcified nodule within the right lower lobe adjacent to the major fissure which is indeterminate. 3. Tiny 3 mm calcified nonobstructing right renal calculus. 4. 10 mm probable cyst within the anterior aspect right kidney. 5. Mild degenerative changes and scoliosis of the thoracolumbar spine. 6. Scattered fibrotic scarring within the posterior lung bases. Chest CTA 04/15/18 10:25 CONCLUSION: 1. No pulmonary embolus identified. Chest X-Ray 04/15/18 10:25 CONCLUSION: Negative examination. Assessment and Plan - Assessment (1) Abdominal pain Code(s): R10.9 - Unspecified abdominal pain Status: Acute (2) Chest pain, rule out acute myocardial infarction Code(s): R07.9 - Chest pain, unspecified Status: Acute - Plan This is a 62-year-old male patient who presented to the ED with: Chest pain, atypical History of CAD with [place] -Patient complaint of 3-week history of mid-epigastric/chest pain. -Was given Morphine IV in ED which has improved. -Serial EKGs and serial troponins have been ordered for ruling out ACS purposes. -Troponin trend flat. -EKG reviewed showing controlled heart rate, no ST changes noted. Continue to monitor on cardiac telemetry. None overnight. -Hold aspirin for now for possible GI bleed/ulcer. -CBC and BMP reviewed, essentially unremarkable. BNP normal. -CXR reviewed with no acute findings. -Chest CTA reviewed without evidence of PE. -ACS ruled out with serial EKGs and serial troponins, he will undergo a cardiac stress test to further rule out ischemia. -Patient is stable at this time and agreeable to the plan. Abdominal/epigastric pain, improving -Reports of blood in stool as well as some bloody sputum. Also admits to using his 's prilosec for concern for possible ulcer. -Was given GI cocktail. Continue Protonix scheduled. Added Carafate. -Abdominal/pelvis CT ordered and reviewed not showing any acute cause for pain. Did show noncalcified lung nodule, advised patient to follow up 3 months with repeat chest CT. Agreeable. -Ensure hydration, continue IVF. -Check occult stool. No BM overnight. -CBC reviewed and H&H stable. Will continue to monitor for any active bleeding. Stable. None overnight. -Spoke to GI who wants patient to be DCd home if stable and stress test negative and follow up in the office today or tomorrow. Will arrange when DC plan is set. -Does admit to a family history of colon cancer on his mother's side, denies previous colonoscopy. -Supportive care. Tobacco abuse: Nicotine patch ordered. Patient expresses desire to quit. Encouraged cessation. DVT Prophylaxis: SCDs. Discharge Planning: Awaiting stress test.
[2018-04-16] MEDS: Acetaminophen 325 MG Tablet PO PRN (08:40)
[2018-04-16 08:45] VITALS: BP 108/63; PULSE 63; RESP 21; TEMP 97.6; O2SAT 97
[2018-04-16] MEDS ORDERED: Regadenoson Inj 0.4 MG/5 ML Syringe IV.PUSH ONE (09:36)
[2018-04-16] MEDS: Sucralfate Liq 1 GM/10 ML UDC PO SCH (10:58)
[2018-04-16] MEDS: Sod Chloride 0.9% Inj 1,000 ML IV.CONT SCH (11:01)
--- NOTE | 2018-04-16 11:16 | NM ---
EXAM DATE: 04/16/2018 10:56 AM EST AGE/SEX: 62 years / Male INDICATIONS:Angina. Myocardial infarction Sub-sternal chest pain. CLINICAL DATA: This is the patient's initial encounter. Patient reports that signs and symptoms have been present for 1 day and indicates a pain score of 7/10. MEDICAL/SURGICAL HISTORY: . Collapsed lung. Smoker. . Chest tube placement. Wrist. COMPARISON: No prior exams available for comparison. DOSE: 8.8 mCi Tc 99m Myoview at rest 27.3 mCi [id number] at stress 0.4 mg Lexiscan STRESS SYMPTOMS: Dyspnea and headache. EJECTION FRACTION: > 70 % TECHNIQUE: The patient underwent pharmacologic stress with infusion of prescribed dose. Continuous ECG tracing was monitored during stress. Gated SPECT imaging was performed after stress and conventi onal SPECT imaging was performed at rest. The examination was performed on a SPECT/CT scanner, both attenuation and non-corrected datasets were reviewed. FINDINGS: Distribution: The maximum perfused segment at stress is in the septal wall. Perfusion Study: The pattern of perfusion at stress is within normal limits. Gated Study: There are intact wall motion and wall thickening without hypokinetic or dyskinetic segm ents. The ejection fraction is calculated at > 70%. RISK CATEGORY: Low (<1% Annual Motality Rate) CONCLUSION: Negative examination. Electronically signed by: Giuseppe Dominguez MD 04/16/2018 11:14 AM EST
--- NOTE | 2018-04-16 12:13 | ECG ---
Date Performed: 04/15/2018 Time Performed: 15:04:03 PTAGE: 62 years EKG: SINUS BRADYCARDIA BORDERLINE ECG Since the PREVIOUS TRACING , no significant change noted PREVIOUS TRACIN04/15/2018 10.19 DOCTOR: Efraín Spivey Interpretating Date/Time 04/16/2018 12:12:15
--- NOTE | 2018-04-16 12:13 | ECG ---
Date Performed: 04/15/2018 Time Performed: 17:50:24 PTAGE: 62 years EKG: Sinus rhythm NORMAL ECG Since the PREVIOUS TRACING , no significant change noted PREVIOUS TRACIN04/15/2018 15.04 DOCTOR: Efraín Spivey Interpretating Date/Time 04/16/2018 12:10:58
--- NOTE | 2018-04-16 15:09 | TR ---
Date Performed: 04/16/2018 Time Performed: 10:00:16 DOCTOR: Efraín Spivey DRUG LIST: CLINICAL HISTORY: REASON FOR TEST: Chest pain REASON FOR ENDING: OBSERVATION: CONCLUSION: COMMENTS: Lexiscan stress test was performed under standard four minute protocol. Radionuclide was injected one minute prior to ending the test. No electrocardiographic abormalities were present t o suggest ischemia. Nuclear imaging and interpretation are pending.
== END 2018-04-16 12:43 | disposition home or self-care (01) ==
LOC: PHEDA 10:13 → PHED 10:13 → PH3 14:05
PROVIDERS: ADMIT Internal Medicine; ATTEND Internal Medicine